=== PATIENT | male | born 1980 | race Caucasian/White ===

== ENCOUNTER 2019-07-01 06:26 | Day surgery (SDC) | payer OTHER ==
[~2019-07-01] VITALS: Ht 188 cm; Wt 127.9 kg
[~2019-07-01 06:26] MED LIST: ACETAMINOPHEN 500 MG TABLET PO ONE; IBUP200T58 PO; ceFAZolin SODIUM 3 GM in IV DEXTROSE 5% 100ML 100 ML IV PRN
[2019-07-01] MEDS ORDERED: IV RINGERS,LACTATED 1000ML 1,000 ML IV SCH (07:00)
[2019-07-01] MEDS ORDERED: ONDANSETRON PF 4 MG/2 ML VIAL. IVP PRN (07:00)
[2019-07-01] MEDS ORDERED: MORPHINE SULFATE 2 MG/ML VIAL. IVP PRN (07:00)
[2019-07-01] MEDS ORDERED: fentaNYL PF VIAL 100 MCG/2 ML VIAL IVP PRN ×2 (07:00)
[2019-07-01] MEDS ORDERED: PROCHLORPERAZINE 10 MG/2 ML VIAL. IVP PRN (07:00)
[2019-07-01] MEDS ORDERED: HYDROmorphone 2 MG/ML VIAL IVP PRN (07:00)
[2019-07-01] MEDS ORDERED: LIDOCAINE 1% PF 2 ML VIAL. ID PRN (07:00)
[2019-07-01] MEDS ORDERED: PROPOFOL 20 ML IV ONE (07:02)
[2019-07-01] MEDS ORDERED: ONDANSETRON PF 4 MG/2 ML VIAL. ONE (07:02)
[2019-07-01] MEDS ORDERED: LIDOCAINE 2% PF 5 ML VIAL. ONE (07:02)
[2019-07-01] MEDS ORDERED: DEXAMETHASONE SOD PHOS 4 MG/ML VIAL ONE (07:02)
[2019-07-01] MEDS ORDERED: IOHEXOL 300 MG/ML 50 ML VIAL. ONE (07:11)
[2019-07-01] MEDS ORDERED: SURGICEL HEMOSTAT 4X8 EACH. ONE (07:11)
[2019-07-01] MEDS ORDERED: BUPIVACAINE-EPI 0.25%-1:200000 MPF 30 ML VIAL. ONE (07:11)
[2019-07-01] MEDS ORDERED: fentaNYL PF VIAL 100 MCG/2 ML VIAL ONE (07:34)
[2019-07-01] MEDS ORDERED: SEVOFLURANE 31 TO 60 MINUTES. IH ONE (07:35)
[2019-07-01] MEDS ORDERED: ESMOLOL 100 MG/10 ML VIAL. IVP ONE (07:54)
[2019-07-01] MEDS ORDERED: GLYCOPYRROLATE 1 MG/5 ML VIAL. ONE (07:54)
[2019-07-01] MEDS ORDERED: NEOSTIGMINE METHYLSULFATE 5 MG/5 ML SYRINGE. ONE (07:55)
[2019-07-01] MEDS ORDERED: KETOROLAC 30 MG/ML VIAL. ONE (08:08)
[2019-07-01] MEDS ORDERED: PHENYLEPHRINE in 0.9% NACL PF 1 MG/10 ML SYRINGE. IV ONE (08:10)
--- NOTE | 2019-07-01 08:25 | PDOC4 ---
Operative Note Operative Note Date: 07/01/2019 Preoperative diagnosis: Chronic cholecystitis with cholelithiasis Postoperative diagnosis: Same Procedure: Laparoscopic cholecystectomy Surgeon: Tony Specimen: Gallbladder Dictation: Patient is a 39-year-old male who has been in the emergency department a couple times with right upper quadrant abdominal pain nausea vomiting ultrasound showing gallstones. Procedure of laparoscopic cholecystectomy was explained to the patient in detail was benefits were also discussed including bleeding infection injury to intra-abdominal contents possibly necessitating further open operations alternatives to this procedure also discussed with the patient who seemed to understand and gave both verbal and written consent to have the procedure performed. Patient was taken to the operating room placed in the supine position general anesthesia was initiated once patient was sleeping intubated his abdomen was prepped and draped usual sterile fashion using ChloraPrep and area just below the umbilicus was injected with quarter percent Marcaine with epinephrine incision was made with 11 blade scalpel and a varies needle was placed within the abdomen creating pneumoperitoneum once this was complete low millimeter port was placed and a 5 mm camera's placed within the abdomen which was inspected no other abnormalities were noted. A 5 mm port was placed in the epigastrium a 5 mm port was placed in the right midabdomen and one in the right lateral abdomen at the dome of the gallbladder is grasped retracted cephalad the infundibulum of the gallbladder was grasped directed laterally exposing the triangle that here tissues of the triangle are taken down with blunt and sharp dissection supposing the cystic duct and cystic artery both were doubly clipped and transected the gallbladder was taken off the liver with hook electrocautery placed in Endo Catch bag removed and the umbilicus the right upper quadrant was irrigated and suctioned dry hemostasis deemed to be appropriate and the pneumoperitoneum was reduced all ports were removed the fascial defect at the umbilicus was closed with a figure- of-eight 0 Vicryl suture and the skin was reapproximated all port sites for subcuticular Monocryl Mastisol Steri-Strips and island dressings were applied. Patient was awakened and extubated in the operating room taken to recovery in stable condition all sponge instrument needle counts listed as correct estimated blood loss 20 mL. NOLBERTO GUTHRIE MD Jul 01, 2019 08:25
--- NOTE | 2019-07-01 08:27 | DISCH ---
DISCHARGE INSTRUCTIONS Condition on Discharge Condition on Discharge: Stable Activity After Discharge Activity Instructions for Disc: Avoid exertion Other activity instructions: No lifting more than 20 pounds for 2 weeks Diet after Discharge Diet after Discharge: Low Fat Wound Incision Care Other wound/incision instructi: May shower in 24 hours Contacting the after DC Call your doctor for: If your condition worsens Follow-Up Follow up with: Dr. Guthrie in 2 weeks NOLBERTO GUTHRIE MD Jul 01, 2019 08:27
[2019-07-01] MEDS ORDERED: OXYC-325 PO (08:47)
[2019-07-01] MEDS ORDERED: oxyCODONE/APAP 5/325 1 TAB TABLET PO ONE ×2 (09:00)
[2019-07-01 09:10] VITALS: BP 127/70
--- NOTE | 2019-07-04 17:06 | PATHOLOGY ---
[facility] Accession Number: [id number] . 01 Material submitted: . gallbladder - GALLBLADDER AND CONTENTS . 01 Clinical history: . Chronic cholecystitis with calculus . 02 Diagnosis: Gallbladder, cholecystectomy: - Cholelithiasis. - Cholesterolosis, focal. - Chronic cholecystitis. ([facility] 07/04/2019) [facility] 07/04/2019 0943 Local . 02 Comment: There is no evidence of malignancy. ([facility] 07/04/2019) . 02 Electronically signed: . Mika Croko MD, Pathologist NPI- [id number] . 01 Gross description: . The specimen is received in formalin, labeled "Ral[place], [place], gallbladder and contents" and consists of an intact partially fat encased yellow-purple gallbladder measuring 10.4 x 2.9 x 2.2 cm. The margin is inked. Opening reveals green bile and a multitude of smooth yellow calculi measuring up to 0.4 x 0.4 cm. The mucosa is green with yellow specks and the wall thickness is 0.1 cm. No gross lesions are identified. Clerical Grader sections are submitted in A1. ([facility]; 07/01/2019) JFQ/JFQ 07/04/2019 0942 Local . 02 Pathologist provided ICD-10: K80.10, K82.4 . 02 CPT . 136384 Specimen Comment: A courtesy copy of this report has been sent to [phone], [phone] Specimen Comment: [id number] Specimen Comment: Report sent to / DR MOELLER Performed at: [address], [place], [place] [id number] MD Eligio Uribe MD Phone: [phone] Performed at: 02 [facility] [address] [place] [id number] MD Mika Crook MD Phone: [phone]
== END 2019-07-01 10:12 | disposition home or self-care (01) ==
LOC: SURG 06:26
PROVIDERS: ATTEND Surgery
DX: K80.10 Calculus of gallbladder with chronic cholecystitis without obstruction (principal); E66.9 Obesity, unspecified; Z68.36 Body mass index [BMI] 36.0-36.9, adult; Z87.891 Personal history of nicotine dependence; Z98.890 Other specified postprocedural states
CPT/HCPCS: 47562; A7015; J1100; J1885; J2370; J2405; J2704; J2710; J3010; J3490; J7030; Q9967